=== PATIENT | female | born 1945 | race American Indian/Alaskan Native ===

== ENCOUNTER 2018-01-19 21:59 | Observation (INO) | payer MEDICARE, OTHER ==
[2018-01-19] MEDS ORDERED: BABY ASPIRIN PO ONE (22:10)
[2018-01-19] MEDS ORDERED: NACL 0.9% 1000 ML 1,000 ML IV ONE (22:10)
[2018-01-19] MEDS ORDERED: HEPARIN 10,000 UNITS/10 ML IV ONE (22:20)
[2018-01-19 22:27] LABS: Basophils # (Auto) 0.1 K/mm3 (0.0-0.1); Basophils % (Auto) 1.7 % (0.0-1.8); Eosinophils # (Auto) 0.4 K/mm3 (0.0-0.4); Eosinophils % (Auto) 4.7 % (0.0-4.3); Hematocrit 29.9 % (30.3-42.9); Hemoglobin 9.5 gm/dl (10.1-14.3); Lymphocytes # (Auto) 3.3 K/mm3 (1.2-5.4); Lymphocytes % (Auto) 41.9 % (13.4-35.0); Mean Corpuscular HGB Conc 32 % (30-34); Mean Corpuscular Hemoglobin 26 pg (28-32); Mean Corpuscular Volume 83 fl (79-97); Monocytes # (Auto) 0.6 K/mm3 (0.0-0.8); Monocytes % (Auto) 8.1 % (0.0-7.3); Platelet Count 461 K/mm3 (140-440); Red Blood Count 3.58 M/mm3 (3.65-5.03); Red Cell Distribution Width 15.6 % (13.2-15.2)
[2018-01-19] MEDS ORDERED: PLAVIX PO ONE (22:28)
[2018-01-19 22:36] LABS: INR 0.92 (0.87-1.13)
[2018-01-19 22:37] LABS: Partial Thromboplastin Time 27.1 Sec. (24.2-36.6)
[2018-01-19] MEDS ORDERED: HEPARIN/ 0.45% NACL-25,000 UNIT/500 ML 25,000 UNIT/500 ML BAG IV SCH (23:00)
--- NOTE | 2018-01-19 23:16 | XRay Report ---
FINAL REPORT EXAM: XR CHEST 1V AP HISTORY: Chest Pain TECHNIQUE: upright single view chest PRIORS: None. FINDINGS: Cardiac and mediastinal contours are unremarkable. No focal pulmonary infiltrate is identified. No pleural fluid collection seen. Pulmonary vasculature is unremarkable. IMPRESSION: Negative single-view chest
[2018-01-19 23:24] LABS: INR 0.96 (0.87-1.13)
--- NOTE | 2018-01-19 23:24 | Emergency Department Report ---
ED Syncope HPI - General Chief Complaint: Syncope Stated Complaint: POSS SYNCOPE EPISODE Time Seen by Provider: 01/19/18 22:10 - History of Present Illness Initial Comments: Ms basurto is a 72 year-old woman with hx of multiple CVA, HTN, recent L carotid endarterectomy who presents after near-syncopal episode. Was sitting outside with her daughter when she became less responsive. Started to slump over, laid in her daughters lap. Passed gas and then sat back up. Does report some shortness of breath. no chest pain. no abdominal pain. no nausea. No hx of DM. No previous ME. No known CAD. No other complaints. - Related Data Allergies/Adverse Reactions: Allergies No Known Allergies Allergy (Unverified 02/12/15 12:03) Home Medications: Ambulatory Orders Cetirizine HCl [ZyrTEC] 10 mg PO DAILY PRN 02/12/15 amLODIPine [Norvasc] 10 mg PO DAILY 02/12/15 ED Review of Systems ROS: Stated complaint: POSS SYNCOPE EPISODE Other details as noted in HPI Comment: All other systems reviewed and negative ED Past Medical Hx - Past Medical History Previous Medical History?: Yes Hx Hypertension: Yes (2011) Hx CVA: Yes (x3 Right knee weakness) - Surgical History Hx Cholecystectomy: Yes Hx Breast Surgery: Yes (L BR BX '90) - Social History Smoking Status: Never Smoker Substance Use Type: None - Medications Home Medications: Home Medications Medication Instructions Recorded Confirmed Last Taken Type Cetirizine HCl [ZyrTEC] 10 mg PO DAILY PRN 02/12/15 02/13/15 Unknown History amLODIPine [Norvasc] 10 mg PO DAILY 02/12/15 02/13/15 Unknown History ED Physical Exam - General Limitations: No Limitations General appearance: alert, in no apparent distress - Head Head exam: Present: atraumatic, normocephalic - Eye Eye exam: Present: normal appearance, PERRL, EOMI - ENT ENT exam: Present: normal exam, mucous membranes moist - Neck Neck exam: Present: normal inspection, other (no JVD). Absent: tenderness, meningismus - Respiratory Respiratory exam: Present: normal lung sounds bilaterally. Absent: respiratory distress, wheezes, rales, rhonchi, chest wall tenderness - Cardiovascular Cardiovascular Exam: Present: regular rate, normal rhythm. Absent: systolic murmur, diastolic murmur, rubs, gallop - GI/Abdominal GI/Abdominal exam: Present: soft, normal bowel sounds. Absent: distended, tenderness - Extremities Exam Extremities exam: Present: normal inspection, full ROM, normal capillary refill. Absent: tenderness - Back Exam Back exam: Present: normal inspection. Absent: tenderness - Neurological Exam Neurological exam: Present: alert, oriented X3 - Psychiatric Psychiatric exam: Present: normal affect, normal mood - Skin Skin exam: Present: warm, dry, intact, normal color. Absent: rash ED Course Vital Signs 01/19/18 22:09 Temperature 98.1 F Pulse Rate 74 Respiratory 16 Rate Blood Pressure 146/76 O2 Sat by Pulse 100 Oximetry ED Medical Decision Making - Lab Data Result diagrams: 01/19/18 22:57 01/19/18 22:57 Lab Results 01/19/18 01/19/18 01/19/18 Range/Units 22:10 22:10 22:10 WBC 7.8 (4.5-11.0) K/mm3 RBC 3.58 L (3.65-5.03) M/mm3 Hgb 9.5 L (10.1-14.3) gm/dl Hct 29.9 L (30.3-42.9) % MCV 83 (79-97) fl MCH 26 L (28-32) pg MCHC 32 (30-34) % RDW 15.6 H (13.2-15.2) % Plt Count 461 H (140-440) K/mm3 Lymph % (Auto) 41.9 H (13.4-35.0) % [place] % (Auto) 8.1 H (0.0-7.3) % Eos % (Auto) 4.7 H (0.0-4.3) % Baso % (Auto) 1.7 (0.0-1.8) % Lymph # 3.3 (1.2-5.4) K/mm3 [place] # 0.6 (0.0-0.8) K/mm3 Eos # 0.4 (0.0-0.4) K/mm3 Baso # 0.1 (0.0-0.1) K/mm3 Seg Neutrophils % 43.6 (40.0-70.0) % Seg Neutrophils # 3.4 (1.8-7.7) K/mm3 PT 12.8 (12.2-14.9) Sec. INR 0.92 (0.87-1.13) APTT 27.1 (24.2-36.6) Sec. D-Dimer 504.37 H (0-234) ng/mlDDU Sodium (137-145) mmol/L Potassium (3.6-5.0) mmol/L Chloride (98-107) mmol/L Carbon Dioxide (22-30) mmol/L Anion Gap mmol/L BUN (7-17) mg/dL Creatinine (0.7-1.2) mg/dL Estimated GFR ml/min BUN/Creatinine Ratio % Glucose (65-100) mg/dL Calcium (8.4-10.2) mg/dL Total Bilirubin (0.1-1.2) mg/dL AST (5-40) units/L ALT (7-56) units/L Alkaline Phosphatase (35-129) units/L Troponin T (0.00-0.029) ng/mL Total Protein (6.3-8.2) g/dL Albumin (3.9-5) g/dL Albumin/Globulin Ratio % Blood Type A NEGATIVE Antibody Screen Negative 01/19/18 01/19/18 01/19/18 Range/Units 22:57 22:57 22:57 WBC (4.5-11.0) K/mm3 RBC (3.65-5.03) M/mm3 Hgb (10.1-14.3) gm/dl Hct (30.3-42.9) % MCV (79-97) fl MCH (28-32) pg MCHC (30-34) % RDW (13.2-15.2) % Plt Count 455 H (140-440) K/mm3 Lymph % (Auto) (13.4-35.0) % [place] % (Auto) (0.0-7.3) % Eos % (Auto) (0.0-4.3) % Baso % (Auto) (0.0-1.8) % Lymph # (1.2-5.4) K/mm3 [place] # (0.0-0.8) K/mm3 Eos # (0.0-0.4) K/mm3 Baso # (0.0-0.1) K/mm3 Seg Neutrophils % (40.0-70.0) % Seg Neutrophils # (1.8-7.7) K/mm3 PT 13.3 (12.2-14.9) Sec. INR 0.96 (0.87-1.13) APTT 27.1 (24.2-36.6) Sec. D-Dimer (0-234) ng/mlDDU Sodium 140 (137-145) mmol/L Potassium 3.6 (3.6-5.0) mmol/L Chloride 102.8 (98-107) mmol/L Carbon Dioxide 26 (22-30) mmol/L Anion Gap 15 mmol/L BUN 13 (7-17) mg/dL Creatinine 0.7 (0.7-1.2) mg/dL Estimated GFR > 60 ml/min BUN/Creatinine Ratio 19 % Glucose 127 H (65-100) mg/dL Calcium 9.2 (8.4-10.2) mg/dL Total Bilirubin 0.20 (0.1-1.2) mg/dL AST 13 (5-40) units/L ALT 10 (7-56) units/L Alkaline Phosphatase 116 (35-129) units/L Troponin T < 0.010 (0.00-0.029) ng/mL Total Protein 6.4 (6.3-8.2) g/dL Albumin 3.4 L (3.9-5) g/dL Albumin/Globulin Ratio 1.1 % Blood Type Antibody Screen 01/20/18 Range/Units 01:00 WBC (4.5-11.0) K/mm3 RBC (3.65-5.03) M/mm3 Hgb (10.1-14.3) gm/dl Hct (30.3-42.9) % MCV (79-97) fl MCH (28-32) pg MCHC (30-34) % RDW (13.2-15.2) % Plt Count (140-440) K/mm3 Lymph % (Auto) (13.4-35.0) % [place] % (Auto) (0.0-7.3) % Eos % (Auto) (0.0-4.3) % Baso % (Auto) (0.0-1.8) % Lymph # (1.2-5.4) K/mm3 [place] # (0.0-0.8) K/mm3 Eos # (0.0-0.4) K/mm3 Baso # (0.0-0.1) K/mm3 Seg Neutrophils % (40.0-70.0) % Seg Neutrophils # (1.8-7.7) K/mm3 PT (12.2-14.9) Sec. INR (0.87-1.13) APTT (24.2-36.6) Sec. D-Dimer (0-234) ng/mlDDU Sodium (137-145) mmol/L Potassium (3.6-5.0) mmol/L Chloride (98-107) mmol/L Carbon Dioxide (22-30) mmol/L Anion Gap mmol/L BUN (7-17) mg/dL Creatinine (0.7-1.2) mg/dL Estimated GFR ml/min BUN/Creatinine Ratio % Glucose (65-100) mg/dL Calcium (8.4-10.2) mg/dL Total Bilirubin (0.1-1.2) mg/dL AST (5-40) units/L ALT (7-56) units/L Alkaline Phosphatase (35-129) units/L Troponin T < 0.010 (0.00-0.029) ng/mL Total Protein (6.3-8.2) g/dL Albumin (3.9-5) g/dL Albumin/Globulin Ratio % Blood Type Antibody Screen - EKG Data 01/19/18 22:04 HR 75, sinus, normal axis, ST elevation in III, II, aVF, with ST depression and TWI in I, aVL. No previous for comparison. 01/20/18 01:28 HR 83, sinus, normal axis, resolved ST elevation but now with biphasic t-wave in II, aVF. Resolved St depression - Medical Decision Making Ms Basurto is a 72 year-old woman who presents after near-syncopal episode. Mild dyspnea. no chest pain. Screening EKG shows STEMI. No chest pain. Well appearing patient with normal VS. Called STEMI and spoke with Dr. Veloz, cardiology. Recommends treating as ACS to to call back with labs. Trop negative. D-dimer elevated. Lytes wnl. Hgb 9. coags normal. CXR clear. CT PE pending. repeat trop neg. Repeat EKG with resolving ischemic changes. Admit to medicine for chest pain work-up, trend trops. Will likely need stress/cath tomorrow. pending result of CT PE. if positive, will need to change low intensity drip to high intensity drip. Heparin drip, plavix here. Had 325mg ASA prior to arrival. Critical Care Time: Yes Critical care time in (mins) excluding proc time.: 35 Critical care attestation.: If time is entered above; I have spent that time in minutes in the direct care of this critically ill patient, excluding procedure time. ED Disposition Clinical Impression: Syncope Qualifiers: Syncope type: unspecified Qualified Code(s): R55 - Syncope and collapse Disposition: 09 OP ADMIT IP TO THIS HOSP Is pt being admited?: Yes Does the pt Need Aspirin: No Condition: Stable Instructions: Syncope (ED) Referrals: JESSICA NEW [Primary Care Provider] - 3-5 Days
[2018-01-19 23:25] LABS: Partial Thromboplastin Time 27.1 Sec. (24.2-36.6)
[2018-01-19 23:31] LABS: Alanine Aminotransferase 10 units/L (7-56); Albumin 3.4 g/dL (3.9-5); BUN/Creatinine Ratio 19; Blood Urea Nitrogen 13 mg/dL (7-17); Calcium 9.2 mg/dL (8.4-10.2); Hemolysis Index 27
--- NOTE | 2018-01-20 02:19 | Cat Scan Report ---
FINAL REPORT PROCEDURE: CT ANGIO CHEST TECHNIQUE: Computerized tomographic angiography of the chest was performed after the IV injection of iodinated nonionic contrast including image processing. The image data was postprocessed using 2-dimensional multiplanar reformatted (MPR) and 3-dimensional (MIP and/or volume rendered) techniques. HISTORY: syncope COMPARISON: No prior studies are available for comparison. FINDINGS: Heart and pericardium: Normal. Thoracic aorta: There is no thoracic aortic aneurysm or dissection.. Pulmonary vasculature: There is no pulmonary embolism.. Lymph nodes: No enlarged thoracic lymph nodes. Lungs: Lungs are expanded. There are fibrotic changes at the lung bases. There are no active infiltrates.. Pleural space: There is no pleural effusion or pneumothorax.. Musculoskeletal structures: No significant abnormality. Upper abdominal structures: There has been a cholecystectomy.. IMPRESSION: There is no pulmonary embolism. There is no thoracic aortic aneurysm or dissection.
[2018-01-20] MEDS ORDERED: TYLENOL PO PRN (03:04)
[2018-01-20] MEDS ORDERED: ZOFRAN IV PRN (03:04)
[2018-01-20] MEDS ORDERED: SODIUM CHLORIDE FLUSH SYRINGE 10 ML IV PRN (03:04)
--- NOTE | 2018-01-20 03:14 | History and Physical Report ---
History of Present Illness Date of examination: 01/20/18 History of present illness: 72-year-old woman with a history of hypertension, CVA was again when she had a syncopal episode for 2 minutes. Denies chest pain, shortness of breath Review of systems Constitutional: no weight loss, chills, fever Ears, eyes, nose, mouth and throat: no nasal congestion, no nasal discharge, no sinus pressure, no vision change, no red eye. Neck: No neck pain or rigidity. Cardiovascular: no chest pain, palpitations Respiratory: no cough, shortness of breath Gastrointestinal: no abdominal pain hematochezia Genitourinary : no frequency , no hematuria Musculoskeletal: no joint swelling or muscle ache Integumentary: no rash, no pruritis Neurological: no parathesias, no numbness, no focal weakness Endocrine: no cold or heat intolerance, no polyuria or polydipsia Hematologic/Lymphatic: no easy bruising, no easy bleeding, no gland swelling Allergic/Immunologic: no urticaria, no angioedema. PAST MEDICAL HISTORY: Hypertension, CVA PAST SURGICAL HISTORY: Cholecystectomy, hysterectomy, carotid endarterectomy SOCIAL HISTORY: Social alcohol, no drugs, smokes 5 cigarettes a day FAMILY HISTORY: Hypertension Medications and Allergies Allergies Allergy/AdvReac Type Severity Reaction Status Date / Time No Known Allergies Allergy Unverified 02/12/15 12:03 Home Medications Medication Instructions Recorded Confirmed Last Taken Type Cetirizine HCl [ZyrTEC] 10 mg PO DAILY PRN 02/12/15 02/13/15 Unknown History amLODIPine [Norvasc] 10 mg PO DAILY 02/12/15 02/13/15 Unknown History Active Meds: Active Medications Heparin Sodium/Sodium Chloride (Heparin/ 0.45% Nacl-25,000 Unit/500 Ml) 25,000 unit in 500 mls @ 20 mls/hr IV TITRATE SYLVESTER; Protocol Last Admin: 01/19/18 23:30 Dose: 1,000 units/hr, 20 mls/hr Exam - Physical Exam Narrative exam: Gen. appearance: Patient lying in bed, no apparent distress HEENT: Normocephalic, atraumatic, pupils equally round and reactive to light, extraocular movement intact, and no sclericterus,. No JVD or thyromegaly or nodule,neck supple, no carotid bruit ,mucous membranes moist, no exudate or erythema Heart: S1, S2, regular rate and rhythm Lungs: Clear bilaterally, breathing comfortable Abdomen: Positive bowel sounds, non-tender, nondistended, no organomegaly Extremity:no edema cyanosis, clubbing Skin: no rash, dry, warm Neuro: Oriented 3, cranial nerves II-12 intact, speech is fluent, motor and sensory intact - Constitutional Vitals: Temp Pulse Resp BP Pulse Ox 98.1 F 88 16 135/44 99 01/19/18 22:09 01/20/18 02:45 01/20/18 02:45 01/20/18 02:45 01/20/18 02:45 Results - Labs CBC & Chem 7: 01/19/18 22:57 01/19/18 22:57 Labs: Abnormal lab results 01/19/18 01/19/18 01/19/18 Range/Units 22:10 22:10 22:57 RBC 3.58 L (3.65-5.03) M/mm3 Hgb 9.5 L (10.1-14.3) gm/dl Hct 29.9 L (30.3-42.9) % MCH 26 L (28-32) pg RDW 15.6 H (13.2-15.2) % Plt Count 461 H (140-440) K/mm3 Lymph % (Auto) 41.9 H (13.4-35.0) % [place] % (Auto) 8.1 H (0.0-7.3) % Eos % (Auto) 4.7 H (0.0-4.3) % D-Dimer 504.37 H (0-234) ng/mlDDU Glucose 127 H (65-100) mg/dL Albumin 3.4 L (3.9-5) g/dL 01/19/18 Range/Units 22:57 RBC (3.65-5.03) M/mm3 Hgb (10.1-14.3) gm/dl Hct (30.3-42.9) % MCH (28-32) pg RDW (13.2-15.2) % Plt Count 455 H (140-440) K/mm3 Lymph % (Auto) (13.4-35.0) % [place] % (Auto) (0.0-7.3) % Eos % (Auto) (0.0-4.3) % D-Dimer (0-234) ng/mlDDU Glucose (65-100) mg/dL Albumin (3.9-5) g/dL - Imaging and Cardiology EKG: image reviewed Chest x-ray: image reviewed CT scan - chest: report reviewed Assessment and Plan Assessment Syncope with abnormal EKG Hypertension History of cva Plan Admit to medicine Continue heparin drip Check cardiac enzymes, consult cardiology for cadiac carh Start aspirin, DVT prophylaxis
[2018-01-20 04:13] LABS: Creatine Kinase MB < 1.0 ng/mL (0.0-4.0)
--- NOTE | 2018-01-20 07:45 | XRay Report ---
Portable chest: Line placement. AP view the chest is compared to the recent exam of 10:20 AM. There's been interval development of a couple of platelike areas of atelectasis in the left midlung. The chest is otherwise clear the mediastinum is unremarkable. No evidence of an internal line placement is identified.
[2018-01-20] MEDS ORDERED: SODIUM CHLORIDE FLUSH SYRINGE 10 ML IV SCH (10:00)
[2018-01-20] MEDS ORDERED: ASPIRIN PO SCH (10:00)
--- NOTE | 2018-01-20 10:46 | Progress Note ---
Assessment and Plan Assessment and plan: Acute coronary syndrome. Pt with abnormal EKG in ED with ST elevation in III, II, aVF, with ST depression and TWI in I, aVL. Await Cardiology consultation. Continue heparin drip. F/U cardiac isoenzymes. Presyncope. F/U ECHO. Check carotid US Hx carotid stenosis with recent CEA a month ago. Hx CVA Additional time spent after admission this morning was 32 minutes. History Interval history: No new issues Hospitalist Physical - Constitutional Vitals: Temp Pulse Resp BP Pulse Ox 98.6 F 79 16 152/78 99 01/20/18 07:57 01/20/18 04:53 01/20/18 07:57 01/20/18 07:57 01/20/18 04:53 General appearance: Present: no acute distress, well-nourished - EENT Eyes: Present: PERRL, EOM intact ENT: hearing intact, clear oral mucosa, dentition normal - Neck Neck: Present: supple, normal ROM - Respiratory Respiratory effort: normal Respiratory: bilateral: CTA - Cardiovascular Rhythm: regular Heart Sounds: Present: S1 & S2. Absent: gallop, rub - Extremities Extremities: no ischemia, No edema, Full ROM - Abdominal General gastrointestinal: soft, non-tender, non-distended, normal bowel sounds - Integumentary Integumentary: Present: clear, warm, dry - Neurologic Neurologic: CNII-XII intact, moves all extremities Results - Labs CBC & Chem 7: 01/19/18 22:57 01/19/18 22:57 Labs: Laboratory Last Values WBC 7.8 K/mm3 (4.5-11.0) 01/19/18 22:10 RBC 3.58 M/mm3 (3.65-5.03) L 01/19/18 22:10 Hgb 9.5 gm/dl (10.1-14.3) L 01/19/18 22:10 Hct 29.9 % (30.3-42.9) L 01/19/18 22:10 MCV 83 fl (79-97) 01/19/18 22:10 MCH 26 pg (28-32) L 01/19/18 22:10 MCHC 32 % (30-34) 01/19/18 22:10 RDW 15.6 % (13.2-15.2) H 01/19/18 22:10 Plt Count 455 K/mm3 (140-440) H 01/19/18 22:57 Lymph % (Auto) 41.9 % (13.4-35.0) H 01/19/18 22:10 [place] % (Auto) 8.1 % (0.0-7.3) H 01/19/18 22:10 Eos % (Auto) 4.7 % (0.0-4.3) H 01/19/18 22:10 Baso % (Auto) 1.7 % (0.0-1.8) 01/19/18 22:10 Lymph # 3.3 K/mm3 (1.2-5.4) 01/19/18 22:10 [place] # 0.6 K/mm3 (0.0-0.8) 01/19/18 22:10 Eos # 0.4 K/mm3 (0.0-0.4) 01/19/18 22:10 Baso # 0.1 K/mm3 (0.0-0.1) 01/19/18 22:10 Seg Neutrophils % 43.6 % (40.0-70.0) 01/19/18 22:10 Seg Neutrophils # 3.4 K/mm3 (1.8-7.7) 01/19/18 22:10 PT 13.3 Sec. (12.2-14.9) 01/19/18 22:57 INR 0.96 (0.87-1.13) 01/19/18 22:57 APTT 27.1 Sec. (24.2-36.6) 01/19/18 22:57 D-Dimer 504.37 ng/mlDDU (0-234) H 01/19/18 22:10 Heparin Anti-Xa Level 0.58 U.I./ml (0.3-0.7) 01/20/18 06:08 Sodium 140 mmol/L (137-145) 01/19/18 22:57 Potassium 3.6 mmol/L (3.6-5.0) 01/19/18 22:57 Chloride 102.8 mmol/L (98-107) 01/19/18 22:57 Carbon Dioxide 26 mmol/L (22-30) 01/19/18 22:57 Anion Gap 15 mmol/L 01/19/18 22:57 BUN 13 mg/dL (7-17) 01/19/18 22:57 Creatinine 0.7 mg/dL (0.7-1.2) 01/19/18 22:57 Estimated GFR > 60 ml/min 01/19/18 22:57 BUN/Creatinine Ratio 19 % 01/19/18 22:57 Glucose 127 mg/dL (65-100) H 01/19/18 22:57 Calcium 9.2 mg/dL (8.4-10.2) 01/19/18 22:57 Total Bilirubin 0.20 mg/dL (0.1-1.2) 01/19/18 22:57 AST 13 units/L (5-40) 01/19/18 22:57 ALT 10 units/L (7-56) 01/19/18 22:57 Alkaline Phosphatase 116 units/L (35-129) 01/19/18 22:57 Total Creatine Kinase 53 units/L (30-135) 01/20/18 03:20 CK-MB (CK-2) < 1.0 ng/mL (0.0-4.0) 01/20/18 03:20 CK-MB (CK-2) Rel Index 1.8 (0-4) 01/20/18 03:20 Troponin T < 0.010 ng/mL (0.00-0.029) 01/20/18 03:20 Total Protein 6.4 g/dL (6.3-8.2) 01/19/18 22:57 Albumin 3.4 g/dL (3.9-5) L 01/19/18 22:57 Albumin/Globulin Ratio 1.1 % 01/19/18 22:57 Blood Type A NEGATIVE 01/19/18 22:10 Antibody Screen Negative 01/19/18 22:10
--- NOTE | 2018-01-20 11:10 | Consultation ---
History of Present Illness Consult date: 01/20/18 Requesting physician: REID CHESTER Consult reason: chest pain History of present illness: The pt is a 72 YO female with a past medical history significant for HTN, HLP, CVA x 3, carotid stenosis s/p left CEA 5 weeks ago, active tobacco use. She is previously unknown to our practice. She presented with complaints of near syncope. She reports that she has been in her normal state of health until yesterday evening. She ate dinner and was sitting down when she suddenly felt very lightheaded. She got up and tried to walk and her daughter had to help her sit back down. She felt as though she may faint. Her daughter called EMS. While en route to ED, pt reports that her lightheadedness started resolving and by the time she got to the ED, she felt back in her normal state of health. Pt denies any loss of consciousness. However, pt was noted to have abnormal ECG initially and thus cardiology has been consulted. Initial ECG showed ST elevations in inferior leads with ST depressions in lateral leads. Repeat ECG approx 3 hours later showed resolving ischemic changes and ECG this AM shows NSR with no acute or evolving ischemic changes. Christina were negative for AMI overnight. Chest CTA is negative for PE, aneurysm or dissection. Pt denies any occurrence of chest pain, SOB, palpitations, n/v, diaphoresis or syncope. Pt denies any prior cardiac issues, including CAD, AMI, arrhythmia or heart failure. Past History Past Medical History: hypertension, hyperlipidemia, stroke, other (carotid stenosis ) Past Surgical History: cholecystectomy, hysterectomy, Other (s/p left CEA 5 weeks ago) Social history: smoking. denies: alcohol abuse, prescription drug abuse Medications and Allergies Allergies Allergy/AdvReac Type Severity Reaction Status Date / Time No Known Allergies Allergy Unverified 02/12/15 12:03 Home Medications Medication Instructions Recorded Confirmed Last Taken Type Cetirizine HCl [ZyrTEC] 10 mg PO DAILY PRN 02/12/15 02/13/15 Unknown History amLODIPine [Norvasc] 10 mg PO DAILY 02/12/15 02/13/15 Unknown History Active Meds: Active Medications Acetaminophen (Tylenol) 650 mg PO Q4H PRN PRN Reason: Pain MILD(1-3)/Fever >100.5/ROBLES Aspirin (Aspirin) 325 mg PO QDAY SYLVESTER Heparin Sodium/Sodium Chloride (Heparin/ 0.45% Nacl-25,000 Unit/500 Ml) 25,000 unit in 500 mls @ 20 mls/hr IV TITRATE SYLVESTER; Protocol Last Titration: 01/20/18 09:09 Dose: 900 units/hr, 18 mls/hr Ondansetron HCl (Zofran) 4 mg IV Q8H PRN PRN Reason: Nausea And Vomiting Sodium Chloride (Sodium Chloride Flush Syringe 10 Ml) 10 ml IV BID SYLVESTER Sodium Chloride (Sodium Chloride Flush Syringe 10 Ml) 10 ml IV PRN PRN PRN Reason: LINE FLUSH Review of Systems Constitutional: no weight loss, no weight gain, no fever, no chills, no sweats Ears, nose, mouth and throat: no ear pain, no nose pain, no sinus pressure, no sinus pain Cardiovascular: lightheadedness, high blood pressure, no chest pain, no orthopnea, no palpitations, no rapid/irregular heart beat, no edema, no syncope , no shortness of breath, no dyspnea on exertion, no paroxysmal nocturnal dyspnea, no claudication, no leg edema, no decreased exercise tolerance Respiratory: no cough, no shortness of breath, no dyspnea on exertion, no congestion, no wheezing, no pain on inspiration Gastrointestinal: no abdominal pain, no nausea, no vomiting, no diarrhea, no constipation, no change in bowel habits Genitourinary Female: no pelvic pain, no flank pain, no dysuria, no urinary frequency, no urgency Musculoskeletal: no neck stiffness, no neck pain, no shooting arm pain, no arm numbness/tingling, no low back pain, no shooting leg pain, no leg numbness/ tingling, no redness of joints Integumentary: no rash, no pruritis, no redness, no sores, no wounds Neurological: no paralysis, no weakness, no parathesias, no numbness, no tingling, no seizures, no syncope Psychiatric: no anxiety Endocrine: no cold intolerance, no heat intolerance Hematologic/Lymphatic: no easy bruising, no easy bleeding Allergic/Immunologic: no urticaria, no wheezing, no persistent infections Physical Examination Vital Signs Pulse Ox 100 01/19/18 21:54 General appearance: no acute distress HEENT: Positive: PERRL, Normocephaly, Mucus Membranes Moist Neck: Positive: neck supple, trachea midline Cardiac: Positive: Reg Rate and Rhythm, S1/S2 Lungs: Positive: clear to auscultation Neuro: Positive: Grossly Intact, Cranial Nerve 2-12 Intact Abdomen: Positive: Soft. Negative: Tender Skin: Positive: Clear. Negative: Rash, Wound Musculoskeletal: No Fluid Collection, No Pain, Normal Range of Motion Extremities: Absent: edema Results 01/19/18 22:57 01/19/18 22:57 Cardiac Enzymes 01/19/18 01/20/18 Range/Units 22:57 03:20 AST 13 (5-40) units/L CK-MB (CK-2) < 1.0 (0.0-4.0) ng/mL Coagulation 01/19/18 01/19/18 Range/Units 22:10 22:57 PT 12.8 13.3 (12.2-14.9) Sec. INR 0.92 0.96 (0.87-1.13) APTT 27.1 27.1 (24.2-36.6) Sec. CBC 01/19/18 01/19/18 Range/Units 22:10 22:57 WBC 7.8 (4.5-11.0) K/mm3 RBC 3.58 L (3.65-5.03) M/mm3 Hgb 9.5 L (10.1-14.3) gm/dl Hct 29.9 L (30.3-42.9) % Plt Count 461 H 455 H (140-440) K/mm3 Lymph # 3.3 (1.2-5.4) K/mm3 [place] # 0.6 (0.0-0.8) K/mm3 Eos # 0.4 (0.0-0.4) K/mm3 Baso # 0.1 (0.0-0.1) K/mm3 Comprehensive Metabolic Panel 01/19/18 Range/Units 22:57 Sodium 140 (137-145) mmol/L Potassium 3.6 (3.6-5.0) mmol/L Chloride 102.8 (98-107) mmol/L Carbon Dioxide 26 (22-30) mmol/L BUN 13 (7-17) mg/dL Creatinine 0.7 (0.7-1.2) mg/dL Glucose 127 H (65-100) mg/dL Calcium 9.2 (8.4-10.2) mg/dL AST 13 (5-40) units/L ALT 10 (7-56) units/L Alkaline Phosphatase 116 (35-129) units/L Total Protein 6.4 (6.3-8.2) g/dL Albumin 3.4 L (3.9-5) g/dL - Imaging and Cardiology Echo: pending EKG: report reviewed, image reviewed EKG interpretations - Telemetry EKG Rhythm: Sinus Rhythm - EKG Sinus rhythms and dysrhythmias: sinus rhythm Assessment and Plan Proceed with lexiscan MPI stress test. Obtain echo. Assessment and plan reviewed with pt at bedside. The patient has been seen in conjunction with Dr. Carrillo who agrees with the assessment and plan of care. - Patient Problems (1) Near syncope Current Visit: Yes Status: Acute (2) Abnormal ECG Current Visit: Yes Status: Acute (3) HTN (hypertension) Current Visit: Yes Status: Chronic (4) History of CVA (cerebrovascular accident) Current Visit: Yes Status: Chronic (5) Carotid stenosis Current Visit: Yes Status: Chronic (6) Status post carotid endarterectomy Current Visit: Yes Status: Chronic (7) Hyperlipidemia Current Visit: Yes Status: Chronic (8) Anemia Current Visit: Yes Status: Acute (9) Tobacco use Current Visit: Yes Status: Chronic
[2018-01-20 11:48] LABS: Creatine Kinase MB 1.1 ng/mL (0.0-4.0)
[2018-01-20] MEDS ORDERED: LEXISCAN IV ONE ×2 (12:34→12:37)
[2018-01-20 15:25] VITALS: BP 143/57
--- NOTE | 2018-01-20 22:51 | Treadmill Report ---
AGE: 78 SEX: Female. REFERRING PHYSICIAN: Shady Lao MD, hospitalist. The patient received 10 mCi of technetium 99m Myoview intravenously under resting condition. Resting myocardial perfusion scan was done. Subsequently, the patient underwent Lexiscan stress test as per the protocol. During Lexiscan stress, the patient received 28 mCi of technetium 99m Myoview intravenously. After 30-60 minutes, post stress images were done. Computerized reconstructed images were performed for analysis. The post-stress images revealed small mild mid inferior wall perfusion defect. Cinematic display of the gated study did not reveal any wall motion abnormality. The left ventricular ejection fraction was normal and was calculated to be 68%. The resting images reveal reversibility of the perfusion defect seen in the stress images. CONCLUSION: 1. Small mild reversible mid inferior wall perfusion defect of uncertain significance. 2. No wall motion abnormality. 3. Normal left ventricular ejection fraction of 68%. JOB# [id number] [facility]
--- NOTE | 2018-01-21 07:31 | Discharge Summary ---
Providers - Providers Date of Admission: 01/20/18 03:04 Date of discharge: 01/20/18 Attending physician: NINFA FINN 01/19/18 23:58 Consult to Cardiology [CONS] Stat Consulting Provider: JUSTIN TUCKER Reason For Exam: STEMI Primary care physician: JESSICA NEW Hospitalization Reason for admission: near syncope Condition: Stable Hospital course: The pt is a 72 YO female with a past medical history significant for HTN, HLP, CVA x 3, carotid stenosis s/p left CEA 5 weeks ago, active tobacco use who presented with complaints of near syncope. She reported that she has been in her normal state of health until the evening before admission. She ate dinner and was sitting down when she suddenly felt very lightheaded. She got up and tried to walk and her daughter had to help her sit back down. She felt as though she may faint. Her daughter called EMS. While en route to ED, pt reports that her lightheadedness started resolving and by the time she got to the ED, she felt back in her normal state of health. Pt denied any loss of consciousness. However, pt was noted to have abnormal ECG initially and thus cardiology was consulted. Initial ECG showed ST elevations in inferior leads with ST depressions in lateral leads. Repeat ECG approx 3 hours later showed resolving ischemic changes and ECG this AM shows NSR with no acute or evolving ischemic changes. Christina were negative for AMI overnight. Chest CTA is negative for PE, aneurysm or dissection. Pt denied any occurrence of chest pain, SOB, palpitations, n/v, diaphoresis or syncope. Pt denied any prior cardiac issues, including CAD, AMI, arrhythmia or heart failure. The patient underwent Lexiscan stress nuclear scan which revealed Small mild reversible mid inferior wall defect. No significant ischemia. LVEF 68% with no wall motion abnormality. the patient also underwent echocardiogram which revealed Mild con. LVH,Normal LVEF of 55 to 60%, Grade 1 diastolic dysfunction.cardiology felt that the patient could be discharged home. Dedicated discharge time 34 minutes. Disposition: DC-01 TO HOME OR SELFCARE Time spent for discharge: 34 - Discharge Diagnoses (1) Abnormal ECG Status: Acute (2) Near syncope Status: Acute (3) HTN (hypertension) Status: Chronic Core Measure Documentation - Palliative Care Palliative Care/ Comfort Measures: Not Applicable - Core Measures Any of the following diagnoses?: none Exam - Constitutional Vitals: Temp Pulse Resp BP Pulse Ox 98.6 F 85 16 143/57 99 01/20/18 07:57 01/20/18 13:36 01/20/18 07:57 01/20/18 13:36 01/20/18 04:53 General appearance: Present: no acute distress, well-nourished - EENT Eyes: Present: PERRL ENT: hearing intact, clear oral mucosa - Neck Neck: Present: supple, normal ROM - Respiratory Respiratory effort: normal Respiratory: bilateral: CTA - Cardiovascular Heart Sounds: Present: S1 & S2. Absent: rub, click - Extremities Extremities: pulses symmetrical, No edema Peripheral Pulses: within normal limits - Abdominal General gastrointestinal: Present: soft, non-tender, non-distended, normal bowel sounds Female genitourinary: Present: normal - Integumentary Integumentary: Present: clear, warm, dry - Musculoskeletal Musculoskeletal: gait normal, strength equal bilaterally - Psychiatric Psychiatric: appropriate mood/affect, intact judgment & insight - Neurologic Neurologic: CNII-XII intact, moves all extremities Plan Activity: no restrictions Weight Bearing Status: Full Weight Bearing Diet: regular Follow up with: JESSICA NEW [Primary Care Provider] - 3-5 Days
--- NOTE | 2018-01-24 16:57 | Query- Syncope ---
Corbin Estrada Date:__01/24/2018 Olga/AGUSTIN:__Mariam/yMke Phone#:___[phone] Exercise your independent professional judgment when responding to query. Questions asked do not imply a particular answer is desired or expected. We greatly appreciate your clarification on this issue. Clinical Documentation States: 72 Year old female was admitted on 01/20/2018 with complaints of near syncope. The Discharge summary stated "(2) Near syncope Status: Acute." Please specify the cause as: [ ] Autonomic Imbalance [ ] Dialysis disequilibrium syndrome [ x] Hypotension [ ] Shock [ ] Psychogenic [ ] Unable to Determine [ ] Other: Present on Admission: [x ] Yes (Y) [ ] Clinically undeterminable (W) [ ] No (N) Please also document response in your Progress Notes and/or Discharge Summary and indicate if the condition was present on admission. ALMITA
== END 2018-01-20 17:09 | disposition home or self-care (01) ==
LOC: ED 21:59 → 4A 01-20 03:04 → INTOOBSV 01-20 03:04
PROVIDERS: ADMIT Internal Medicine; ATTEND Hospitalist
DX: R55 Syncope and collapse (principal); R94.31 Abnormal electrocardiogram [ECG] [EKG]; I10 Essential (primary) hypertension; F17.210 Nicotine dependence, cigarettes, uncomplicated; E78.5 Hyperlipidemia, unspecified; Z90.49 Acquired absence of other specified parts of digestive tract; Z82.49 Family history of ischemic heart disease and other diseases of the circulatory system; Z90.710 Acquired absence of both cervix and uterus; Z86.73 Personal history of transient ischemic attack (TIA), and cerebral infarction without residual deficits
CPT/HCPCS: 36415; 71045; 71275; 78452; 80053; 82550; 82553; 84484; 85025; 85049; 85379; 85520; 85610; 85730; 86850; 86900; 86901; 93005; 93010; 93017; 93306; 96361; 96374; 99291; A9502; G0378; J1644; J2785; Q9967

== ENCOUNTER 2020-10-08 11:11 | Emergency (ER) | payer MEDICARE ==
[2020-10-08 11:58] VITALS: BP 129/55
--- NOTE | 2020-10-08 12:32 | Emergency Department Report ---
HPI - General Chief Complaint: Dyspnea/Respdistress Time Seen by Provider: 10/08/20 12:14 - HPI HPI: Room 21 The patient is a 75-year-old female present with a chief complaint of increased work of breathing and near syncope. The patient went to her primary physician's office for routine blood work when she arrived there she was found to have increased work of breathing and was reportedly hypoxic to 85% on room air. The patient reportedly cannot get out of her vehicle. The patient was placed on supplemental O2 and her O2 sats increased to 95%. Patient states she felt dizzy and felt as though she was going to pass out so she was assisted to a chair and began to improve. Patient denies ever losing consciousness. Patient denies ever having chest pain. Patient states she had a headache earlier but none currently. Patient admits to an occasional cough for the past 3 to 4 days has been productive of whitish-green sputum. Patient denies history of fever nausea or vomiting. Patient complains of fatigue. Patient denies any other pain of any type. ED Past Medical Hx - Past Medical History Hx Hypertension: Yes (2011) Hx CVA: Yes (x3 Right knee weakness) - Surgical History Hx Cholecystectomy: Yes Hx Breast Surgery: Yes (L BR BX '90) - Family History Family history: no significant - Social History Smoking Status: Current Every Day Smoker (1/2 pack/day) Substance Use Type: None (Denies illicit drug), Alcohol (Occasional) - Medications Home Medications: Home Medications Medication Instructions Recorded Confirmed Last Taken Type Cetirizine HCl [ZyrTEC] 10 mg PO DAILY PRN 02/12/15 01/20/18 Unknown History amLODIPine [Norvasc] 10 mg PO DAILY 02/12/15 01/20/18 Unknown History ED Review of Systems ROS: Stated complaint: SOB, FEEING FAINT Other details as noted in HPI Constitutional: denies: fever Eyes: denies: eye pain ENT: denies: throat pain Respiratory: cough, shortness of breath Cardiovascular: denies: chest pain Endocrine: no symptoms reported Gastrointestinal: constipation. denies: abdominal pain, nausea, vomiting Genitourinary: denies: dysuria Musculoskeletal: denies: back pain Neurological: headache Physical Exam - Physical Exam Vital Signs: Vital Signs 10/08/20 10/08/20 11:44 11:45 Temperature 97.9 F Pulse Rate 76 Respiratory 20 Rate Blood Pressure 129/55 [Left] O2 Sat by Pulse 97 Oximetry Physical Exam: GENERAL: The patient is well-developed well-nourished female sitting on stretcher not appearing to be in acute distress. [] HEENT: Normocephalic. Atraumatic. Extraocular motions are intact. Patient has moist mucous membranes. NECK: Supple. Trachea midline CHEST/LUNGS: Clear to auscultation. There is slightly increased work of breathing. SPO2 100% on room air HEART/CARDIOVASCULAR: Regular. There is no tachycardia. There is no gallop rub or murmur. ABDOMEN: Abdomen is soft, nontender. Patient has normal bowel sounds. There is no abdominal distention. SKIN: There is no rash. There is no edema. There is no diaphoresis. NEURO: The patient is awake, alert, and oriented. The patient is cooperative. The patient has no focal neurologic deficits. The patient has normal speech MUSCULOSKELETAL: There is no evidence of acute injury. ED Course Vital Signs 10/08/20 10/08/20 11:44 11:45 Temperature 97.9 F Pulse Rate 76 Respiratory 20 Rate Blood Pressure 129/55 [Left] O2 Sat by Pulse 97 Oximetry ED Medical Decision Making - Lab Data Result diagrams: 10/08/20 13:30 Laboratory Tests 10/08/20 10/08/20 13:30 13:30 WBC 7.4 RBC 4.30 Hgb 8.5 L Hct 28.9 L MCV 67 L MCH 20 L MCHC 30 RDW 22.4 H Plt Count 528 H Lymph % (Auto) 23.3 [place] % (Auto) 8.6 H Eos % (Auto) 2.0 Baso % (Auto) 0.8 Lymph # (Auto) 1.7 [place] # (Auto) 0.6 Eos # (Auto) 0.1 Baso # (Auto) 0.1 Seg Neutrophils % 65.3 Seg Neutrophils # 4.9 D-Dimer 817.55 H - EKG Data -: EKG Interpreted by Me EKG shows normal: sinus rhythm Rate: normal - EKG Data When compared to previous EKG there are: previous EKG unavailable Interpretation: other (No ischemic changes seen) - Radiology Data Radiology results: report reviewed (Chest x-ray), image reviewed (Chest x-ray) interpreted by me: Chest x-ray-no definite focal infiltrates, no pneumothorax. No foreign body seen [facility] [address] [place] [address] XRay Report Signed Patient: MARGOTH KWONG MR#: [id number] : 1945 Acct:[id number] Age/Sex: 75 / F ADM Date: 10/08/20 Loc: ED Attending Dr: Ordering Physician: MARCUS UNDERWOOD MD Date of Service: 10/08/20 Procedure(s): XR chest 1V ap Accession Number(s): [id number] cc: MARCUS UNDERWOOD MD Fluoro Time In Minutes: CHEST 1 VIEW 10/08/2020 12:53 PM INDICATION / CLINICAL INFORMATION: Shortness of breath. COMPARISON: None available. FINDINGS: SUPPORT DEVICES: None. HEART / MEDIASTINUM: No significant abnormality. LUNGS / PLEURA: Mild increased vascularity within bilateral lungs No pneumothorax. ADDITIONAL FINDINGS: No significant additional findings. IMPRESSION: 1. Mild increased pulmonary vascularity. Signer Name: Abhay Bernal MD Signed: 10/08/2020 1:16 PM Workstation Name: [id number] Transcribed By: CW Dictated By: ROXY BERNAL MD Electronically Authenticated By: ROXY BERNAL MD Signed Date/Time: 10/08/201315 DD/ 15 TD/TT: Print - Medical Decision Making Patient states she does not wish to be evaluated any further and wants to leave the hospital AGAINST MEDICAL ADVICE. Explained to the patient that one of her blood test (D-dimer) has come back abnormal and I just ordered a CAT scan of the brain and a CT angiogram of the chest to rule out PE. Patient states she does not wish to wait for further work-up. Patient verbalized understanding of increased morbidity and/or mortality should she leave the hospital AGAINST MEDICAL ADVICE. Patient states she understands and wishes to leave the hospital AGAINST MEDICAL ADVICE. Conversation was witnessed by nurse Jamison. Patient advised to return to the hospital immediately should she change her mind - Differential Diagnosis Pneumonia, bronchitis, PE, dysrhythmia, symptomatic anemia, Critical care attestation.: If time is entered above; I have spent that time in minutes in the direct care of this critically ill patient, excluding procedure time. ED Disposition Clinical Impression: Near syncope, Shortness of breath Disposition: DC-07 LEFT AGAINST MED ADVICE Is pt being admited?: No Does the pt Need Aspirin: No Condition: Undetermined Referrals: DOMENICA GÓMEZ MD [Primary Care Provider] - 3-5 Days Time of Disposition: 14:35 (Patient leaving AMA)
--- NOTE | 2020-10-08 13:20 | XRay Report ---
CHEST 1 VIEW 10/08/2020 12:53 PM INDICATION / CLINICAL INFORMATION: Shortness of breath. COMPARISON: None available. FINDINGS: SUPPORT DEVICES: None. HEART / MEDIASTINUM: No significant abnormality. LUNGS / PLEURA: Mild increased vascularity within bilateral lungs No pneumothorax. ADDITIONAL FINDINGS: No significant additional findings. IMPRESSION: 1. Mild increased pulmonary vascularity. Signer Name: Abhay Bernal MD Signed: 10/08/2020 1:16 PM Workstation Name: [id number]
[2020-10-08 13:51] LABS: Basophils # (Auto) 0.1 K/mm3 (0.0-0.1); Basophils % (Auto) 0.8 % (0.0-1.8); Eosinophils # (Auto) 0.1 K/mm3 (0.0-0.4); Hemoglobin 8.5 gm/dl (10.1-14.3); Lymphocytes # (Auto) 1.7 K/mm3 (1.2-5.4); Lymphocytes % (Auto) 23.3 % (13.4-35.0); Monocytes # (Auto) 0.6 K/mm3 (0.0-0.8); Monocytes % (Auto) 8.6 % (0.0-7.3)
[2020-10-08 13:59] LABS: Mean Corpuscular HGB Conc 30 % (30-34); Platelet Count 528 K/mm3 (140-440)
[2020-10-08 14:01] LABS: Hematocrit 28.9 % (30.3-42.9); Mean Corpuscular Volume 67 fl (79-97); Red Cell Distribution Width 22.4 % (13.2-15.2)
[2020-10-08 14:47] LABS: Creatine Kinase MB 1.8 ng/mL (0.0-4.0)
[2020-10-08 14:51] LABS: Calcium 9.4 mg/dL (8.4-10.2)
--- NOTE | 2020-10-10 10:40 | Electrocardiograph Report ---
[facility] Test Date: 2020-10-08 Test Time: 11:59:07 Pat Name: MARGOTH KWONG Department: Room: Gender: F Senior Technical Business Analyst: MADI : 1945 Requested By: MARCUS UNDERWOOD Order Number: [id number] Reading MD: Nile Fitzgerald Measurements Intervals [place] Rate: 79 P: 60 UT: 183 QRS: -11 QRSD: 89 T: 29 QT: 411 QTc: 471 Interpretive Statements Sinus rhythm Inferior infarct, old No previous ECG available for comparison Electronically Signed On 10-10-2020 10:39:43 EDT by Nile Fitzgerald
== END 2020-10-08 14:35 | disposition left against medical advice (07) ==
LOC: ED 11:11
DX: R55 Syncope and collapse (principal); R06.02 Shortness of breath; I10 Essential (primary) hypertension; Z90.49 Acquired absence of other specified parts of digestive tract; Z98.890 Other specified postprocedural states; Z86.73 Personal history of transient ischemic attack (TIA), and cerebral infarction without residual deficits; F17.200 Nicotine dependence, unspecified, uncomplicated; Z79.899 Other long term (current) drug therapy
CPT/HCPCS: 36415; 71045; 80048; 82550; 82553; 83880; 84484; 85025; 85379; 93005